=== PATIENT | female | born 1970 | race Hispanic/Latino ===

== ENCOUNTER 2020-04-26 16:44 | Emergency (ER) | payer OTHER, SELFPAY ==
--- NOTE | ~2020-04-26 | CT_ITS ---
EXAMINATION: CT abdomen pelvis w con DATE: 04/26/2020 19:51 INDICATION: Left lower quadrant abdominal pain. TECHNIQUE: Computed tomography (CT) of the abdomen and pelvis was performed with 100 mL Omnipaque 350 intravenous contrast. Automated exposure control and iterative reconstruction technique were employe d. The dose-length product was 584.29 mGy-cm. COMPARISON: CT abdomen and pelvis 01/30/2014 FINDINGS: The visualized portions of the lung bases demonstrate mild atelectasis. No pleural effusion . The heart size is normal. No pericardial effusion. The liver, gallbladder, spleen, pancreas, adrena l glands, and right kidney are normal. There is a 2 mm stone in left kidney. There are no dilated loo ps of bowel. There is fat stranding around a diverticulum of sigmoid colon, consistent with diverticu litis. There are no dilated loops of bowel. The appendix is normal. There are no pathologically enlar ged lymph nodes. There is no free intraperitoneal fluid. There is a small umbilical hernia containing fat. There are benign bone islands in proximal left femur. There is mild thoracolumbar spondylosis. IMPRESSION: 1. Acute sigmoid diverticulitis. No perforation or abscess. Reviewed, dictated and finalized at location A.
[2020-04-26 16:53] VITALS: BP 125/69; PULSE 70; RESP 16; TEMP 36.1; O2SAT 99
[2020-04-26 17:15] LABS: Basophils Percent Auto 0.2 % (0.2-1.2); Eosinophils Absolute Auto 0.1 K/mm3 (0-0.3); Eosinophils Percent Auto 1.1 % (0-4.4); Hematocrit 38.7 % (37.0-47.0); Immature Granulocyte Absolute 0.02 K/mm3 (0.00-0.031); Immature Granulocyte Percent A 0.4 % (0-0.5); Lymphocytes Absolute Auto 1.47 K/mm3 (0.9-3.2); Mean Corpuscular HGB Conc 33.6 g/dl (32-36); Mean Corpuscular Hemoglobin 29.2 pg (26-34); Mean Platelet Volume 9.9 fl (7.4-10.4); Monocytes Absolute Auto 0.4 K/mm3 (0.1-0.6); Monocytes Percent Auto 6.9 % (2.6-8.5); Neutrophils Absolute Auto 3.7 K/mm3 (1.3-6.7); Neutrophils Percent Auto 65.4 % (45.5-73.1); Platelet Count Result 242 k/mm3 (150-375); Red Blood Count 4.45 M/mm3 (4.2-5.4); Red Cell Distribution Width 12.6 % (11.5-14.5); White Blood Count 5.7 K/mm3 (4.5-10.0)
[2020-04-26 17:20] LABS: Add Urine Microscopic? YES; Appearance Urine Clear (Clear); Bilirubin Urine Negative (Negative); Blood Urine Negative (Negative); Color Urine Yellow (Yellow); Glucose Urine UA Negative (Negative); Ketones Urine Trace mg/dL (Negative); Leukocyte Esterase Ur Negative LEU/UL (Negative); Mucus Urine Rare /lpf; Nitrate Urine Negative (Negative); Protein Urine Negative (Negative); RBC Urine 0-2 /hpf (0-2); Specific Grav Ur 1.015 (1.001-1.035); Squamous Epithelial Cell Urine Occasional /hpf (Few); Urobilinogen Urine Negative mg/dL (<2.0); WBC Urine 0-3 /hpf
[2020-04-26 17:28] LABS: Alanine Aminotransferase 16 U/L (4-35); Albumin Level 4.4 g/dL (3.5-5.1); Alkaline Phosphatase 71 U/L (38-126); Aspartate Amino Transferase 23 U/L (14-36); Bilirubin,Total 0.6 mg/dL (0.2-1.3); Blood Urea Nitrogen 13 mg/dL (7-17); Calcium 8.3 mg/dL (8.4-10.2); Carbon Dioxide 26 mmol/L (22-30); Chloride 106 mmol/L (98-107); Estimated CRCL calculation 124 ml/min; Estimated Glomerular Filt Rate > 60; Glucose 85 mg/dL (65-105); Lipase 26 U/L (23-300); Potassium 3.7 mmol/L (3.4-5.0); Sodium 139 mmol/L (137-145)
[2020-04-26 17:54] VITALS: BP 125/78; PULSE 65; RESP 20; O2SAT 97
--- NOTE | 2020-04-26 18:48 | ED.ABDPAIN ---
HPI - Abdominal Pain General Chief Complaint: Abdominal Pain Stated Complaint: low abd pain Time Seen by Provider: 04/26/20 17:50 Source: patient Mode of arrival: ambulatory Limitations: no limitations History of Present Illness HPI narrative: Patient is a 49-year-old female who presents to emergency department for evaluation of abdominal pain localized to the left lower quadrant that is been present for the last several days patient notes moderate to severe intermittent aching pain patient notes similar occurrence in the past diagnosed as endometriosis patient has not taken anything for symptoms presents with son in the room in discomfort. Related Data Home Medications Medication Instructions Recorded Confirmed cholecalciferol (vitamin D3) 1,250 50,000 unit PO WEEKLY 08/19/19 02/03/20 mcg (50,000 unit) tablet digestive enzymes 1 cap PO DAILY 08/19/19 02/03/20 ibuprofen 800 mg tablet 800 mg PO TID PRN 08/19/19 02/03/20 iodine (kelp) tablet PO 08/19/19 02/03/20 potassium 99 mg tablet mg PO 08/19/19 02/03/20 coenzyme Q10 75 mg capsule 75 mg PO DAILY 04/26/20 Allergies Allergy/AdvReac Type Severity Reaction Status Date / Time No Known Allergies Allergy Mild Unverified 11/22/08 20:14 Review of Systems Review of Systems: All systems reviewed & are unremarkable except as noted in HPI and below PMFSH Past Medical History Medical History Anxiety Depression Diabetes Thyroid disease Surgical History Surgical History H/O thyroidectomy H/O total hysterectomy History of endometrial ablation Social History Social History Smoking status: Never smoker Second hand tobacco smoke exposure: No Alcohol intake: never Exam Narrative: Exam Narrative: GENERAL: Well-appearing, well-nourished, and in acute pain HEAD: Normocephalic, atraumatic. EYES: PERRLA and EOMI. ENT: Nares clear, no rhinorrhea or epistaxis. Mucous membranes moist. CHEST: Clear to auscultation. No respiratory distress. No wheezes rales or rhonchi HEART: Regular rate and rhythm. No murmur heard. Normal peripheral pulses. ABDOMEN: Soft, tenderness to the left lower abdomen, nondistended EXTREMITIES: Normal range of motion. No edema. SKIN: Warm, dry, no rash. NEURO: No focal deficits. Alert and oriented x3. PSYCH: Normal mood and affect. Course Course Emergency Course: Patient in the room feeling much better with medications found to have diverticulitis was given medicine for pain and fluids in the emergency department made aware of the case findings and treatment plan agreeing to follow-up with primary care and gastroenterology Vital Signs Vital signs: Vital Signs Temperature 97 F L 04/26/20 16:53 Pulse Rate 70 04/26/20 16:53 Respiratory Rate 16 04/26/20 16:53 Blood Pressure 125/69 04/26/20 16:53 Pulse Oximetry 99 04/26/20 16:53 Temperature 97 F L 04/26/20 16:53 Pulse Rate 80 04/26/20 20:39 Respiratory Rate 18 04/26/20 20:39 Blood Pressure 138/70 04/26/20 20:39 Pulse Oximetry 99 04/26/20 20:39 MDM - Abdominal Pain MDM Narrative Medical decision making narrative: Patient found to have uncomplicated sigmoid diverticulitis in the room in no distress aware of case findings treatment plan and diagnosis agreeing to follow-up as directed and provided with reasons to return Lab Data Result diagrams: 04/26/20 17:01 04/26/20 17:01 Labs: Lab Results 04/26/20 04/26/20 04/26/20 Range/Units 17:01 17:01 17:01 WBC 5.7 (4.5-10.0) K/mm3 RBC 4.45 (4.2-5.4) M/mm3 Hgb 13.0 (12.0-15.0) g/dL Hct 38.7 (37.0-47.0) % MCV 87.0 (80-100) fl MCH 29.2 (26-34) pg MCHC 33.6 (32-36) g/dl RDW 12.6 (11.5-14.5) % Plt Count 242 (150-375) k/mm3 MPV 9.9 (7.4-10.4) fl Immature Gran %
[2020-04-26] MEDS: FAMOTIDINE 20 MG/2 ML VIAL IV PUSH (19:11)
[2020-04-26] MEDS: MORPHINE SULFATE 4 MG/ML INJ IV PUSH (19:11)
[2020-04-26] MEDS: ONDANSETRON INJ 4 MG/2 ML VIAL IV PUSH (19:12)
[2020-04-26] MEDS: SODIUM CHLORIDE 0.9% IV 1,000 ML 999 ML IV CONT (19:12)
[2020-04-26 20:39] VITALS: BP 138/70; PULSE 80; RESP 18; O2SAT 99
[2020-04-26 21:48] VITALS: BP 132/78; PULSE 78; RESP 20; TEMP 36.8; O2SAT 99
== END 2020-04-26 21:50 | disposition home or self-care (01) ==
PROVIDERS: Emergency Medicine; Emergency Provider Family Medicine; PCP Family Medicine
DX: K57.32 Diverticulitis of large intestine without perforation or abscess without bleeding (principal); E11.9 Type 2 diabetes mellitus without complications; E07.9 Disorder of thyroid, unspecified
CPT/HCPCS: 36415; 74177; 80053; 81001; 81025; 83690; 85025; 96365; 96375; 99284; J0131; J2270; J2405; J7030; Q9967

== ENCOUNTER → 2021-04-09 11:25 | Outpatient (CLI) | payer OTHER, SELFPAY ==
--- NOTE | ~2021-04-09 | MM_ITS ---
EXAMINATION: MM screening [facility] BI w romario HISTORY: Screening TECHNIQUE: Craniocaudal and mediolateral oblique 3-D tomosynthesis images were obtained and synthetic 2-D images were generated. CAD analysis was submitted and interpreted. COMPARISON: Comparison to multiple prior studies sequentially, with oldest reviewed study dated 09/11. BREAST PARENCHYMAL COMPOSITION: There are scattered areas of fibroglandular density. FINDINGS: There is no evidence of suspicious mass, calcification, or architectural distortion to sugg est malignancy in either breast. There has been no suspicious interval change. IMPRESSION: 1. No mammographic evidence of malignancy. 2. Recommend routine screening mammography in one year. BI-RADS Category 1: Negative Reviewed, dictated and finalized at location A.
== END ==
PROVIDERS: PCP Family Medicine; Visit Provider Student in an Organized Health Care Education/Training Program
DX: Z12.31 Encounter for screening mammogram for malignant neoplasm of breast (principal)
CPT/HCPCS: 77063; 77067

== ENCOUNTER 2021-07-04 11:26 | Outpatient (CLI) | payer OTHER, SELFPAY ==
[2021-07-04 19:02] LABS: Basophils Percent Auto 0.2 % (0.2-1.2); Eosinophils Absolute Auto 0.1 K/mm3 (0-0.3); Eosinophils Percent Auto 1.5 % (0-4.4); Hemoglobin 13.6 g/dL (12.0-15.0); Immature Granulocyte Absolute 0.01 K/mm3 (0.00-0.031); Immature Granulocyte Percent A 0.2 % (0-0.5); Lymphocytes Absolute Auto 1.58 K/mm3 (0.9-3.2); Lymphocytes Percent Auto 33.4 % (18.3-44.2); Mean Corpuscular HGB Conc 33.2 g/dl (32-36); Mean Corpuscular Hemoglobin 28.8 pg (26-34); Mean Corpuscular Volume 86.9 fl (80-100); Mean Platelet Volume 10.6 fl (7.4-10.4); Monocytes Absolute Auto 0.4 K/mm3 (0.1-0.6); Monocytes Percent Auto 7.4 % (2.6-8.5); Neutrophils Absolute Auto 2.7 K/mm3 (1.3-6.7); Neutrophils Percent Auto 57.3 % (45.5-73.1); Platelet Count Result 263 k/mm3 (150-375); Red Blood Count 4.72 M/mm3 (4.2-5.4); Red Cell Distribution Width 12.3 % (11.5-14.5); White Blood Count 4.7 K/mm3 (4.5-10.0)
[2021-07-04 19:13] LABS: Alanine Aminotransferase 16 U/L (4-35); Albumin Level 5.1 g/dL (3.5-5.1); Alkaline Phosphatase 76 U/L (38-126); Anion Gap 10 mmol/L (8-16); Aspartate Amino Transferase 26 U/L (14-36); Bilirubin,Total 0.6 mg/dL (0.2-1.3); Blood Urea Nitrogen 13 mg/dL (7-17); Calcium 9.6 mg/dL (8.4-10.2); Carbon Dioxide 29 mmol/L (22-30); Chloride 103 mmol/L (98-107); Cholesterol 300 mg/dL (0-200); Estimated Glomerular Filt Rate > 60; Glucose 82 mg/dL (65-110); HDL Direct 72 mg/dL; Hemoglobin A1C 5.4 % (<5.7); Magnesium 2.2 mg/dL (1.6-2.3); Potassium 4.1 mmol/L (3.4-5.0); Sodium 142 mmol/L (137-145); Triglycerides 89 mg/dL (<150)
[2021-07-04 19:24] LABS: LDL Cholesterol Direct 198 mg/dL
[2021-07-04 20:08] LABS: Vitamin B12 > 1000.0 pg/mL (239-931)
[2021-07-04 23:34] LABS: MALB Creatinine Ratio < 5.2 mg/g (0-30); Microalbumin Urine Random < 6.0 mg/L (0-16.7)
[2021-07-07 07:33] LABS: Progesterone 0.5 ng/mL (***)
[2021-07-09 13:44] LABS: Testosterone Free 2.2 pg/mL (0.1-6.4); Testosterone Total 24 ng/dL (2-45)
[2021-07-11 21:01] LABS: Estrogen 172.5 pg/mL
== END 2021-07-04 11:27 | disposition home or self-care (01) ==
LOC: ANHBWCLAB 11:27
PROVIDERS: PCP Family Medicine; Visit Provider Family Medicine
DX: E11.9 Type 2 diabetes mellitus without complications (principal); E28.39 Other primary ovarian failure; E83.51 Hypocalcemia; E03.9 Hypothyroidism, unspecified; Z00.00 Encounter for general adult medical examination without abnormal findings; F32.9 Major depressive disorder, single episode, unspecified
CPT/HCPCS: 36415; 80053; 80061; 82043; 82607; 82672; 83036; 83735; 84144; 84402; 84403; 84443; 85025

== ENCOUNTER 2021-07-23 01:50 | Day surgery (SDC) | payer OTHER, SELFPAY ==
[2021-07-22 12:01] VITALS: BMI 28.8
[2021-07-23 11:35] VITALS: BP 117/65; PULSE 48; RESP 18; TEMP 36.1; O2SAT 100
[2021-07-23] MEDS: LACTATED RINGERS 1,000 ML 150 ML IV CONT (11:46)
--- NOTE | 2021-07-23 12:38 | PM.HPGS ---
History of Present Illness History of Present Illness Consent: Risks, benefits, and alternatives have been discussed and questions answered. Patient agrees to proceed with procedure. Chief complaint: neoplasm screening Narrative: Bren Jennings is a 50 year old female here for first screening colonoscopy Review of Systems Constitutional: Constitutional: Denies headache(s) and Denies weakness Eyes: Eyes: Denies blurry vision ENT: Reports Normal hearing present, Denies headache(s) and Denies neck pain Cardiovascular: Cardiovascular: Denies chest pain and Denies dyspnea Respiratory: Respiratory: Denies dyspnea Gastrointestinal: Gastrointestinal: Reports no additional gastrointestinal complaints Genitourinary: Genitourinary: Denies dysuria Musculoskeletal: Musculoskeletal: Denies neck pain Integumentary/Breasts: Skin/Breast: Denies dry skin Neurologic: Reports Normal hearing present, Denies headache(s) and Denies weakness Psychiatric: Psychiatric: Denies anxiety Endocrine: Endocrine: Denies change in body appearance Hematologic/Lymphatic: Hematologic/Lymphatic: Denies easy bleeding Allergic/Immunologic: Allergic/Immunologic: Denies urticaria PMFSH Past Medical History Medical History Anxiety Depression Diabetes Thyroid disease Vaginal delivery x 4 Surgical History Surgical History H/O thyroidectomy H/O total hysterectomy History of endometrial ablation Family History Family History Mother Family history of thyroid disease Family history of obesity Family history of mental disorder Depression Family history of cataracts Family history of arthritis Family history of diabetes mellitus in first degree relative Family history of malignant neoplasm of breast in first degree relative Father Depression Family history of cataracts Malignant neoplasm of prostate Family history of diabetes mellitus in first degree relative Father Diabetes mellitus Cerebrovascular accident Grandparent Family history of malignant neoplasm, Onset Age: 73 Mother Diabetes mellitus Family history of hypercholesterolemia Hypertension Family history of malignant neoplasm of breast in first degree relative Social History Social History Smoking status: Never smoker Second hand tobacco smoke exposure: No Alcohol intake: current Substance use: never Substance use type: does not use Living arrangements: with family Spiritual care concerns: No Meds Home Medications and Allergies Home Medications Medication Instructions Recorded Confirmed Type bacillus coagulans-inulin 1 1 cap PO DAILY 08/14/20 07/22/21 History billion cell-250 mg capsule multivitamin 1 tablet PO DAILY 08/14/20 07/22/21 History omega-3 fatty acids 1,000 mg 3,000 mg PO DAILY 08/14/20 07/22/21 History capsule valacyclovir 1 gram tablet 2,000 mg PO Q12H PRN 1 Days #4 10/15/20 07/22/21 Rx tablet melatonin 5 mg tablet 5 mg PO QHS PRN 07/04/21 07/22/21 History trazodone 100 mg tablet 100 mg PO .hs PRN #90 tablet 07/04/21 07/22/21 Rx vitamin B complex 2 tablet PO DAILY 07/04/21 07/22/21 History Beta Alinine 600 mg PO DAILY 07/22/21 07/22/21 History Vitamin D3 10,000 units PO DAILY 07/22/21 07/22/21 History alpha lipoic acid 600 mg PO DAILY 07/22/21 07/22/21 History blue-green algae (bulk) [Spirulina] 1 ea MISCELLANEOUS DAILY 07/22/21 07/22/21 History calcium carbonate [Calcium 600] 600 mg PO BID 07/22/21 07/22/21 History chromium picolinate 200 mcg PO DAILY 07/22/21 07/22/21 History coQ10 (ubiquinol) 200 mg PO DAILY 07/22/21 07/22/21 History creatine monohydrate 5,000 mg PO DAILY PRN 07/22/21 07/22/21 History cyanocobalamin (vitamin B-12) 5,000 mcg SUBLINGUAL DAILY 07/22/21 07/22/21 History
--- NOTE | 2021-07-23 12:44 | WPDANESEPPF ---
Anes - Initial Pre Proc Eval Procedure: Operation Date: 07/23/21 12:00 Proposed Procedures p Screening Colonoscopy - Nadir Bah MD Date/Time: 07/23/21 12:44 Surgeon: Nadir Bah MD Pre Op Diagnosis: neoplasm screening Patient Data Age: 50 Gender: F Height: 1.68 m Weight: 82.1 kg Last Vital Signs Temp 97.0 F L 07/23/21 11:35 Pulse 48 L 07/23/21 11:35 Resp 18 07/23/21 11:35 BP 117/65 07/23/21 11:35 Pulse Ox 100 07/23/21 11:35 Allergies Allergy/AdvReac Type Severity Reaction Status Date / Time No Known Allergies Allergy Mild Verified 07/23/21 11:27 Home Medications Medication Instructions Recorded Confirmed Type bacillus coagulans-inulin 1 1 cap PO DAILY 08/14/20 07/22/21 History billion cell-250 mg capsule multivitamin 1 tablet PO DAILY 08/14/20 07/22/21 History omega-3 fatty acids 1,000 mg 3,000 mg PO DAILY 08/14/20 07/22/21 History capsule valacyclovir 1 gram tablet 2,000 mg PO Q12H PRN 1 Days #4 10/15/20 07/22/21 Rx tablet melatonin 5 mg tablet 5 mg PO QHS PRN 07/04/21 07/22/21 History trazodone 100 mg tablet 100 mg PO .hs PRN #90 tablet 07/04/21 07/22/21 Rx vitamin B complex 2 tablet PO DAILY 07/04/21 07/22/21 History Beta Alinine 600 mg PO DAILY 07/22/21 07/22/21 History Vitamin D3 10,000 units PO DAILY 07/22/21 07/22/21 History alpha lipoic acid 600 mg PO DAILY 07/22/21 07/22/21 History blue-green algae (bulk) [Spirulina] 1 ea MISCELLANEOUS DAILY 07/22/21 07/22/21 History calcium carbonate [Calcium 600] 600 mg PO BID 07/22/21 07/22/21 History chromium picolinate 200 mcg PO DAILY 07/22/21 07/22/21 History coQ10 (ubiquinol) 200 mg PO DAILY 07/22/21 07/22/21 History creatine monohydrate 5,000 mg PO DAILY PRN 07/22/21 07/22/21 History cyanocobalamin (vitamin B-12) 5,000 mcg SUBLINGUAL DAILY 07/22/21 07/22/21 History [Vitamin B-12] glucosamine sulfate 1,000 mg PO DAILY 07/22/21 07/22/21 History iodine (kelp) 243 mcg PO DAILY 07/22/21 07/22/21 History potassium citrate 275 mg PO DAILY 07/22/21 07/22/21 History Patient hx anesthesia problems: none Family hx anesthesia problems: none Results Review: All pre-operative results and documents have been reviewed as part of the pre-operative evaluation. PMFSH Past Medical History Medical History Anxiety Depression Diabetes Thyroid disease Vaginal delivery x 4 Surgical History Surgical History H/O thyroidectomy H/O total hysterectomy History of endometrial ablation Family History Family History Mother Family history of thyroid disease Family history of obesity Family history of mental disorder Depression Family history of cataracts Family history of arthritis Family history of diabetes mellitus in first degree relative Family history of malignant neoplasm of breast in first degree relative Father Depression Family history of cataracts Malignant neoplasm of prostate Family history of diabetes mellitus in first degree relative Father Diabetes mellitus Cerebrovascular accident Grandparent Family history of malignant neoplasm, Onset Age: 73 Mother Diabetes mellitus Family history of hypercholesterolemia Hypertension Family history of malignant neoplasm of breast in first degree relative Social History Social History (Reviewed 07/04/21 @ 10:43 by Joaquina Lopez [facility]) Smoking status: Never smoker Second hand tobacco smoke exposure: No Alcohol intake: current Substance use: never Substance use type: does not use Living arrangements: with family Spiritual care concerns: No Anes - Eval Final PreProcedure Day of Procedure 07/23/21 12:44 Patient weight: overweight Heart: regular rate and rhythm Lungs: clear to auscultation Airway: Mallampati scale class II Neurologica
[2021-07-23 13:06] VITALS: BP 87/46; PULSE 49; RESP 14; O2SAT 100
[2021-07-23 13:16] VITALS: BP 105/61; PULSE 56; RESP 25; O2SAT 100
[2021-07-23 13:26] VITALS: BP 105/45; PULSE 55; RESP 20; O2SAT 100
== END 2021-07-23 13:42 | disposition home or self-care (01) ==
PROVIDERS: PCP Family Medicine; Visit Provider Internal Medicine Gastroenterology
PROC: 0DJD8ZZ Inspection of Lower Intestinal Tract, Via Natural or Artificial Opening Endoscopic (ICD-10-PCS; CPT 45378; principal; 2021-07-23 12:00)
DX: Z12.11 Encounter for screening for malignant neoplasm of colon (principal); D12.2 Benign neoplasm of ascending colon; K63.5 Polyp of colon; K57.30 Diverticulosis of large intestine without perforation or abscess without bleeding; K64.8 Other hemorrhoids; E11.9 Type 2 diabetes mellitus without complications; F41.8 Other specified anxiety disorders; E89.0 Postprocedural hypothyroidism
CPT/HCPCS: 45385; 88305; J2704; J7120

== ENCOUNTER 2021-09-03 07:38 | Outpatient (CLI) | payer OTHER, SELFPAY ==
[2021-09-03 19:31] LABS: Uric Acid 3.6 mg/dL (2.5-7.5)
== END 2021-09-03 07:39 | disposition home or self-care (01) ==
LOC: ANHBWCLAB 07:41
PROVIDERS: PCP Family Medicine; Visit Provider Family Medicine
DX: M25.50 Pain in unspecified joint (principal); Z82.69 Family history of other diseases of the musculoskeletal system and connective tissue
CPT/HCPCS: 36415; 84550